=== PATIENT | female | born 1950 | race American Indian/Alaskan Native ===

== ENCOUNTER 2019-01-23 05:50 | Observation (INO) | payer MEDICARE, OTHER ==
[2019-01-19 10:08] LABS: Basophils % (Auto) 0.5 % (0.0-1.8); Eosinophils % (Auto) 0.2 % (0.0-4.3); Hematocrit 33.7 % (30.3-42.9); Hemoglobin 11.4 gm/dl (10.1-14.3); Lymphocytes # (Auto) 0.8 K/mm3 (1.2-5.4); Lymphocytes % (Auto) 26.1 % (13.4-35.0); Mean Corpuscular HGB Conc 34 % (30-34); Mean Corpuscular Volume 89 fl (79-97); Monocytes # (Auto) 0.3 K/mm3 (0.0-0.8); Monocytes % (Auto) 11.3 % (0.0-7.3); Platelet Count 297 K/mm3 (140-440); Red Blood Count 3.77 M/mm3 (3.65-5.03); Red Cell Distribution Width 14.3 % (13.2-15.2)
--- NOTE | 2019-01-19 10:08 | Anesthesia Consultation ---
Anesthesia Consult and Med Hx Date of service: 01/19/19 - Airway Anesthetic Teeth Evaluation: Good (3 Lt. Upper missing teeth - Bridge), Bridges ROM Head & Neck: Adequate Mental/Hyoid Distance: Adequate Mallampati Class: Class II Intubation Access Assessment: Probably Good - Pulmonary Exam CTA: Yes - Cardiac Exam Cardiac Exam: RRR - Pre-Operative Health Status ASA Pre-Surgery Classification: ASA2 Proposed Anesthetic Plan: General Nerve Block: Pec Blk discussed. Pt consents - Pulmonary Hx Sleep Apnea: Yes (Uses CPAP) - Cardiovascular System Hx Hypertension: Yes (OVER 10 YEARS) Hx Heart Murmur: Yes - Central Nervous System Hx Back Pain: Yes Hx Psychiatric Problems: No - Other Systems Hx Alcohol Use: Yes (OCCA) Hx Substance Use: No - Additional Comments Anesthesia Medical History Comments: 5'2.5" / 64.4kg / BMI-25.6. Risks, benefits of GETA discussed. Pt indicates understanding and consents.
[2019-01-19 10:25] LABS: BUN/Creatinine Ratio 23; Blood Urea Nitrogen 18 mg/dL (7-17); Calcium 9.7 mg/dL (8.4-10.2); Hemolysis Index 17
[~2019-01-23 05:50] MED LIST: ANCEF/STERILE WATER 2 GM/20 ML 2 GM/20 ML SYRINGE IV NR
[2019-01-23] MEDS ORDERED: MARCAINE 0.25% INFILTRATI ONE ×2 (07:28→07:41)
[2019-01-23] MEDS: LACTATED RINGERS 1,000 ML IV SCH ×2 (07:28→14:39)
[2019-01-23] MEDS ORDERED: XYLOCAINE 1% 20 mL ONE ×2 (07:28→07:41)
[2019-01-23] MEDS ORDERED: SUBLIMAZE ONE ×2 (07:30→07:39)
[2019-01-23] MEDS ORDERED: ZOFRAN ONE (07:30)
[2019-01-23] MEDS ORDERED: DIPRIVAN 10 MG/ML IV ONE (07:31)
[2019-01-23] MEDS ORDERED: NEURONTIN ONE (07:39)
[2019-01-23] MEDS ORDERED: VERSED ONE (07:39)
[2019-01-23] MEDS ORDERED: DECADRON ONE (07:41)
[2019-01-23] MEDS ORDERED: METHYLENE BLUE ONE (07:49)
[2019-01-23] MEDS ORDERED: NACL P/F VIAL (10 ML) 10 ML ONE (07:49)
[2019-01-23] MEDS ORDERED: LACTATED RINGERS 1,000 ML IV SCH (08:00)
--- NOTE | 2019-01-23 08:14 | Operative Report ---
Operative Report Operative Report: Date of Service: January 23, 2019 Preoperative diagnosis: Right breast cancer of the upper outer quadrant Postoperative diagnosis: Same Procedure: Right total mastectomy with sentinel lymph node biopsy Surgeon: Yvette Lopez M.D. Anesthesia: Gen. Findings: Right breast clip present within right total mastectomy. x1 sentinel lymph node identified and negative for malignancy on frozen section of pathology Complications: None Drains: One 19 Fr ABIGAIL Estimated blood loss: Minimal Disposition: PACU in good condition Indications for operative procedure: This is a 68-year-old lady with a personal history of bilateral breast cancer with newly diagnosed right breast cancer of the upper outer quadrant; [id number] ER/IL negatvie. She has a history of right breast cancer in 1994 s/p right lumpectomy wtih ALND followed by XRT. She has a history of left breast cancer in 1984 s/p left mastectomy with ALND followed by TRAM post adjuvant chemoradation. Recommendations were to proceed with a right mastectomy given history of right breast adjuvant XRT. Patient declined PRS. She wished to proceed with the above procedure. Procedure in detail: Anesthesia placed right pectoral muscle block prior to going to the operating room. The patient was taken to the operating room and was placed supine. Gen. anesthesia was administered. The right nipple was injected with radioisotope and 1 cc of methylene blue dye with 1 cc of saline. Right chest and axilla was prepped and draped in the normal sterile operative fashion. Timeout was performed. Typical mastectomy incision marking was made. Attention was taken towards the right breast. A gamma probe was inserted into the axilla to identify the sentinel lymph node location with uptake noted. A skin incision was made with a 10 blade knife and dissection taken down to the subcutaneous tissues. First began raising of the superior flap to the level of the clavicle superiorly and posteriorly to the pectoralis muscle. Followed by raising of the medial flap to the level of the sternum and posteriorly to the pectoralis muscle. Followed by raising of the lateral flap to the level of the latissimus dorsi muscle and taken down posteriorly. Scar tissue of the upper inner quadrant around the 1:00/2:00 positions were noted with scar resected. The gamma probe was inserted into the axilla, the axillary fascia was opened and 1 sentinel lymph node was identified with the gamma probe that were dissected free and sent to pathology. No remaining counts were present and patient with a history of right ALND in 1994. SLN was negative for malignancy on frozen section of pathology. Then proceeded with raising of the inferior flap to the level of the inframammary fold taken posterior to the pectoralis muscle. The mastectomy/breast was removed from the pectoralis muscle without incident. Mastectomy was noted for typical findings post XRT. The specimen was daniel ropriately marked and sent to radiology with findings of breast clip and microcalcifications present and sent to pathology. Hemostasis was noted. The chest wall was irrigated and suctioned. Hemostasis was obtained. One 19 [place] ABIGAIL drain was placed. The subcutaneous tissues were closed using an interrupted 3-0 Vicryl followed by closing of the skin using a running 4-0 Monocryl and dermabond. She tolerated surgery very well and was awaken from anesthesia and transported to PACU in good conidition.
--- NOTE | 2019-01-23 08:16 | Short Stay Summary ---
Short Stay Documentation Date of service: 01/23/19 - History H&P: obtained from office - Allergies and Medications Current Medications: Allergies No Known Allergies Allergy (Verified 01/17/19 15:49) Home Medications Medication Instructions Recorded Confirmed Last Taken Type Aspirin [Aspirin BABY CHEW TAB] 81 mg PO QDAY 01/17/19 01/23/19 01/22/19 09:00 History AtorvaSTATin [Lipitor] 20 mg PO QHS 01/17/19 01/23/19 01/22/19 09:00 History Calcium Citrate/Vitamin D3 [[place] 1 each PO DAILY 01/17/19 01/23/19 01/22/19 09:00 History Calcium + D Tablet] Cetirizine HCl [Allergy Relief] 10 mg PO DAILY 01/17/19 01/23/19 01/22/19 09:00 History Diclofenac Sodium 1 dose TP QID 01/17/19 01/23/19 01/22/19 09:00 History Fluticasone [Flonase] 1 spray NS QDAY 01/17/19 01/23/19 01/22/19 09:00 History Mv-Min/Iron/Folic/Calcium/Vitk 1 each PO BID 01/17/19 01/23/19 01/22/19 17:00 History [Women's Multivitamin Tablet] Olmesartan/Hydrochlorothiazide 1 each PO DAILY 01/17/19 01/23/19 01/22/19 09:00 History [Olmesartan-Hctz 40-25 mg Tab] Active Medications Cefazolin Sodium (Ancef/Sterile Water 2 Gm/20 Ml) 2 gm in 20 mls @ 80 mls/hr IV PREOP NR; Protocol Stop: 01/23/19 23:59 Lactated Ringer's (Lactated Ringers) 1,000 mls @ 75 mls/hr IV DIRECT BRAVO - Brief post op/procedure progress note Date of procedure: 01/23/19 Pre-op diagnosis: Right breast cancer of the upper outer quadrant Post-op diagnosis: same Procedure: Right total mastectomy Anesthesia: GETA Findings: clip present in specimen; x1 SLN and negative on frozen Surgeon: DAMIR CASILLAS Estimated blood loss: minimal Pathology: list (right mastectomy) Specimen disposition: to lab Condition: stable - Disposition Condition at discharge: Good Disposition: DC/TX-02 SHRT-TRM GEN HOSP IP Short Stay Discharge Plan Activity: other (no heavy lifting) Diet: regular Wound: keep clean and dry Follow up with: CYRUS LAZAR MD [Primary Care Provider] - 7 Days DAMIR CASILLAS MD [Staff Physician] - 7 Days
[2019-01-23] MEDS ORDERED: DILAUDID IV PRN (08:34)
--- NOTE | 2019-01-23 08:34 | Anesthesia Day of Surgery ---
Anesthesia Day of Surgery - Day of Surgery Patient Examined: Yes Patient H&P Reviewed: Yes Patient is NPO: Yes
[2019-01-23] MEDS ORDERED: WATER FOR IRRIG STERILE IR ONE (09:15)
[2019-01-23] MEDS ORDERED: ZOFRAN IV PRN (10:40)
[2019-01-23] MEDS ORDERED: TYLENOL PO PRN (10:40)
[2019-01-23] MEDS ORDERED: PERCOCET 5/325 PO PRN (10:40)
[2019-01-23] MEDS ORDERED: BENADRYL PO PRN (10:40)
[2019-01-23] MEDS ORDERED: REGLAN PO PRN (10:40)
[2019-01-23] MEDS ORDERED: SODIUM CHLORIDE FLUSH SYRINGE 10 ML IV PRN (10:40)
[2019-01-23] MEDS ORDERED: MORPHINE IV PRN (10:43)
--- NOTE | 2019-01-23 11:28 | Mammography Report ---
SPECIMEN RADIOGRAPH RIGHT BREAST: 01/23/19 05:50:00 CLINICAL: Right mastectomy. FINDINGS: Surgical clips and a biopsy clip and a second site are identified within the specimen.
--- NOTE | 2019-01-23 13:16 | Post Anesthesia Evaluation ---
- Post Anesthesia Evaluation Patient Participated: Yes Airway Patent: Yes Stable Respiratory Function: Yes Nausea/Vomiting: No Temp > 96.8F: Yes Pain Manageable: Yes Adequeate Hydration: Yes Anesthesia Complications: No
[2019-01-23] MEDS: COLACE PO SCH (22:48)
--- NOTE | 2019-01-24 08:07 | Progress Note ---
Assessment and Plan This is a 68 year old lady POD#1 right mastectomy. 1. No acute events overnight and patient with no complaints of pain. 2. Right chest incision healing well. 3. OOB to hallway. 4. ABIGAIL drain education. 5. D/C planning for today. Subjective Date of service: 01/24/19 Principal diagnosis: Right breast cancer Interval history: POD#1 right mastectomy Objective - Constitutional Vitals: Vital Signs - 12hr 01/23/19 01/23/19 01/24/19 20:30 20:55 01:40 Temperature 98 F 97.6 F Pulse Rate 84 79 Respiratory 18 14 16 Rate Blood Pressure 116/66 97/55 [Left] O2 Sat by Pulse 98 100 Oximetry 01/24/19 05:50 Temperature 97.6 F Pulse Rate 78 Respiratory 16 Rate Blood Pressure 97/61 [Left] O2 Sat by Pulse 100 Oximetry General appearance: Present: no acute distress - EENT Eyes: PERRL, EOM intact ENT: hearing intact, clear oral mucosa Ears: bilateral: normal - Neck Neck: supple, normal ROM - Respiratory Respiratory effort: normal Respiratory: bilateral: CTA - Breasts Breasts: other (right chest incision healing well; incision c/d/i, skin well perfused; ABIGAIL drain to bulb suction) - Cardiovascular Rhythm: regular Extremities: no ischemia, pulses intact, pulses symmetrical, No edema, normal temperature, normal color, Full ROM - Gastrointestinal General gastrointestinal: Present: soft, non-tender, non-distended Rectal Exam: deferred - Genitourinary Female genitourinary: deferred - Integumentary Integumentary: clear, warm, dry - Musculoskeletal Musculoskeletal: strength equal bilaterally - Neurologic Neurologic: CNII-XII intact, moves all extremities - Psychiatric Psychiatric: appropriate mood/affect, intact judgment & insight, memory intact, cooperative - Labs CBC & Chem 7: 01/19/19 09:40 01/19/19 09:40 Medications & Allergies - Medications Allergies/Adverse Reactions: Allergies No Known Allergies Allergy (Verified 01/17/19 15:49) Home Medications: Home Medications Medication Instructions Recorded Confirmed Last Taken Type Aspirin [Aspirin BABY CHEW TAB] 81 mg PO QDAY 01/17/19 01/23/19 01/22/19 09:00 History AtorvaSTATin [Lipitor] 20 mg PO QHS 01/17/19 01/23/19 01/22/19 09:00 History Calcium Citrate/Vitamin D3 [[place] 1 each PO DAILY 01/17/19 01/23/19 01/22/19 09:00 History Calcium + D Tablet] Cetirizine HCl [Allergy Relief] 10 mg PO DAILY 01/17/19 01/23/19 01/22/19 09:00 History Diclofenac Sodium 1 dose TP QID 01/17/19 01/23/19 01/22/19 09:00 History Fluticasone [Flonase] 1 spray NS QDAY 01/17/19 01/23/19 01/22/19 09:00 History Mv-Min/Iron/Folic/Calcium/Vitk 1 each PO BID 01/17/19 01/23/19 01/22/19 17:00 History [Women's Multivitamin Tablet] Olmesartan/Hydrochlorothiazide 1 each PO DAILY 01/17/19 01/23/19 01/22/19 09:00 History [Olmesartan-Hctz 40-25 mg Tab] HYDROcodone/APAP 5-325 [[place] 1 each PO Q6HR PRN #30 tablet 01/24/19 Unknown Rx 5/325] Active Medications: Generic Name Dose Route Start Last Admin Trade Name Freq PRN Reason Stop Dose Admin Acetaminophen 650 mg 01/23/19 10:40 Tylenol PO Q6H PRN Pain MILD(1-3)/Fever >100.5/TOSCANO Diphenhydramine HCl 25 mg 01/23/19 10:40 Benadryl PO Q8H PRN Itching Docusate Sodium 100 mg 01/23/19 22:00 01/23/19 22:48 Colace PO Not Given BID BRAVO Lactated Ringer's 1,000 mls @ 125 mls/hr 01/23/19 11:00 01/23/19 14:39 Lactated Ringers IV 125 mls/hr DIRECT BRAVO Administration Metoclopramide HCl 10 mg 01/23/19 10:40 Reglan PO Q6H PRN Nausea And Vomiting Morphine Sulfate 2 mg 01/23/19 10:43 Morphine IV Q4H PRN Pain, Moderate (4-6) Ondansetron HCl 4 mg 01/23/19 10:40 Zofran IV Q8H PRN N/V unrelieved by Reglan Oxycodone/Acetaminophen 1 tab 01/23/19 10:40 Percocet 5/325 PO Q6H PRN Pain, Moderate (4-6) Sodium Chloride 10 ml 01/23/19 10:40 Sodium Chloride Flush Syringe 10 Ml IV PRN PRN LINE FLUSH
[2019-01-24] MEDS: COLACE PO SCH (11:28)
[2019-01-24 13:14] VITALS: BP 116/68
== END 2019-01-24 12:45 | disposition home or self-care (01) ==
LOC: OR 05:50 → OB 10:40
PROVIDERS: ADMIT Surgery; ATTEND Surgery
DX: C50.911 Malignant neoplasm of unspecified site of right female breast (principal)
CPT/HCPCS: 19303; 36415; 76098; 78800; 80048; 85025; 88307; 88309; 88331; 88333; 88342; A9541; G0378; J0690; J1100; J2250; J2405; J2704; J3010; J7120; Q9968

== ENCOUNTER 2019-02-10 14:26 | Outpatient (CLI) | payer MEDICARE, OTHER | END 2019-02-10 14:27 | disposition home or self-care (01) | LOC: LABHHL 14:26 | PROVIDERS: ATTEND Surgery | DX: N60.01 Solitary cyst of right breast (principal); E78.00 Pure hypercholesterolemia, unspecified; I10 Essential (primary) hypertension; Z90.710 Acquired absence of both cervix and uterus; Z90.12 Acquired absence of left breast and nipple | CPT/HCPCS: 87075; 87116 ==

== ENCOUNTER 2019-07-24 07:05 | Day surgery (SDC) | payer MEDICARE, OTHER ==
[~2019-07-24 07:05] MED LIST changes: -ANCEF/STERILE WATER 2 GM/20 ML 2 GM/20 ML SYRINGE IV NR; +ANCEF/STERILE WATER 2 GM/20 ML IV NR
[2019-07-24] MEDS ORDERED: TYLENOL PO NR (07:31)
--- NOTE | 2019-07-24 07:36 | Anesthesia Day of Surgery ---
Anesthesia Day of Surgery - Day of Surgery Patient Examined: Yes Patient H&P Reviewed: Yes Patient is NPO: Yes
--- NOTE | 2019-07-24 07:40 | Anesthesia Consultation ---
Anesthesia Consult and Med Hx Date of service: 07/24/19 - Airway Anesthetic Teeth Evaluation: Good, Crowns ROM Head & Neck: Adequate Mental/Hyoid Distance: Adequate Mallampati Class: Class II Intubation Access Assessment: Good - Pre-Operative Health Status ASA Pre-Surgery Classification: ASA3 Proposed Anesthetic Plan: General Nerve Block: PEC - Pulmonary Hx Smoking: No Hx Sleep Apnea: Yes (DX SLEEP APNEA WITH CPAP USE.) - Cardiovascular System Hx Hypertension: Yes (OVER 10 YEARS) Hx Heart Murmur: Yes - Central Nervous System Hx Back Pain: Yes Hx Psychiatric Problems: No - Other Systems Hx Alcohol Use: Yes (OCCA) Hx Substance Use: No Hx Cancer: Yes
[2019-07-24] MEDS ORDERED: DILAUDID IV PRN (08:00)
[2019-07-24] MEDS ORDERED: SUBLIMAZE IV PRN (08:00)
[2019-07-24] MEDS ORDERED: LACTATED RINGERS 1,000 ML IV SCH (08:00)
[2019-07-24] MEDS ORDERED: NEURONTIN PO NR (08:00)
[2019-07-24] MEDS ORDERED: ZOFRAN IV PRN (08:00)
[2019-07-24] MEDS ORDERED: SUBLIMAZE IV NR (08:00)
[2019-07-24 08:22] LABS: Basophils % (Auto) 0.3 % (0.0-1.8); Eosinophils % (Auto) 0.1 % (0.0-4.3); Hematocrit 33.4 % (30.3-42.9); Hemoglobin 11.2 gm/dl (10.1-14.3); Lymphocytes # (Auto) 0.8 K/mm3 (1.2-5.4); Lymphocytes % (Auto) 21.8 % (13.4-35.0); Mean Corpuscular HGB Conc 33 % (30-34); Mean Corpuscular Volume 89 fl (79-97); Monocytes # (Auto) 0.4 K/mm3 (0.0-0.8); Platelet Count 301 K/mm3 (140-440); Red Blood Count 3.76 M/mm3 (3.65-5.03); Red Cell Distribution Width 14.2 % (13.2-15.2)
[2019-07-24] MEDS ORDERED: VERSED ONE (08:57)
[2019-07-24] MEDS ORDERED: MARCAINE-EPI 0.5%-1:200,000 INFILTRATI ONE (09:01)
[2019-07-24] MEDS ORDERED: XYLOCAINE 1% 20 mL ONE ×2 (09:02→09:04)
[2019-07-24] MEDS ORDERED: MARCAINE 0.25% INFILTRATI ONE (09:04)
[2019-07-24] MEDS ORDERED: DILAUDID ONE (09:08)
[2019-07-24] MEDS ORDERED: DIPRIVAN 10 MG/ML IV ONE (09:08)
[2019-07-24] MEDS ORDERED: XYLOCAINE MPF 2% ONE (09:10)
--- NOTE | 2019-07-24 10:25 | Operative Report ---
Operative Report Operative Report: Operative Report: Date of Service: July 24, 2019 Preoperative diagnosis: Personal history of right breast cancer, s/p mastectomy Postoperative diagnosis: Same Procedure: Right mastectomy skin revision Surgeon: Yvette Lopez M.D. Sociology Teacher: Tamiko Lazcano M.D. 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 She has a history right breast cancer diagnosed in 1994 status post right partial mastectomy with ALND followed by XRT; and left breast cancer in 1984 status post left MRM post adjuvant chemoradiation therapy. Patient wished to proceed with mastectomy skin revision for mastectomy skin to be tighter of the medial aspect. Patient wished to proceed with the above pro cedure. The patient was procedure in detail: The patient was taken to the operating room and was laid supine. General anesthesia was administered. The right chest was prepped and draped in the normal sterile operative fashion. Timeout was performed. A skin incision was made through the prior mastectomy incision. Skin flap was noted to be thin with minimal subcutaneous tissues. Then proceeded with medial skin flap revision with resection of skin and underlying tissues. Specimen removed was marked and then sent to pathology. Hemostasis was obtained using the Bovie cautery. The chest cavity was irrigated and suctioned. The subcutaneous tissues were approximated and closed using interrupted 2-0 and 3-0 Vicryl and skin brought together and closed using a running 4-0 Monocryl followed by placement of PICCO dressing. The medial aspect noted for area to be closed tighter. She tolerated surgery very well and was awakened from anesthesia without any complication and transported to PACU in good condition.
[2019-07-24] MEDS ORDERED: WATER FOR IRRIG STERILE IR ONE (11:00)
[2019-07-24] MEDS ORDERED: DECADRON ONE (11:30)
[2019-07-24] MEDS ORDERED: ZOFRAN ONE (11:30)
[2019-07-24] MEDS ORDERED: LACTATED RINGERS 1,000 ML ONE (12:05)
--- NOTE | 2019-07-24 12:10 | Short Stay Summary ---
Short Stay Documentation Date of service: 07/24/19 - History H&P: obtained from office - Allergies and Medications Current Medications: Allergies No Known Allergies Allergy (Verified 01/17/19 15:49) Home Medications Medication Instructions Recorded Confirmed Last Taken Type AtorvaSTATin [Lipitor] 20 mg PO QHS 01/17/19 07/24/19 07/23/19 History Cetirizine HCl [Allergy Relief] 10 mg PO DAILY 01/17/19 07/24/19 07/23/19 Hist ory Fluticasone [Flonase] 2 spray NS QDAY 01/17/19 07/24/19 07/23/19 History Mv-Min/Iron/Folic/Calcium/Vitk 1 each PO BID 01/17/19 07/24/19 07/23/19 History [Women's Multivitamin Tablet] Olmesartan/Hydrochlorothiazide 1 each PO DAILY 01/17/19 07/24/19 07/23/19 History [Olmesartan-Hctz 40-25 mg Tab] HYDROcodone/APAP 5-325 [[place] 1 each PO Q6HR PRN #30 tablet 01/24/19 07/17/19 Un known Rx 5/325] HYDROcodone/APAP 5-325 [[place] 1 each PO Q6HR PRN #12 tablet 07/24/19 Unknown Rx 5/325] Active Medications Acetaminophen (Tylenol) 650 mg PO ONCE NR Stop: 07/24/19 18:00 Last Admin: 07/24/19 08:11 Dose: 650 mg Documented by: Cefazolin Sodium (Ancef/Sterile Water 2 Gm/20 Ml) 2 gm IV PREOP NR Stop: 07/24/19 23:59 Celecoxib (Celebrex) 200 mg PO PREOP NR Stop: 07/24/19 20:00 Last Admin: 07/24/19 08:12 Dose: 200 mg Documented by: Fentanyl (Sublimaze) 50 mcg IV Q5MIN PRN PRN Reason: Pain , Severe (7-10) Stop: 07/24/19 17:00 Fentanyl (Sublimaze) 100 mcg IV ONCE NR Stop: 07/24/19 17:00 Last Admin: 07/24/19 09:16 Dose: 100 mcg Documented by: Gabapentin (Neurontin) 300 mg PO PREOP NR Stop: 07/24/19 20:00 Last Admin: 07/24/19 08:12 Dose: 300 mg Documented by: Hydromorphone HCl (Dilaudid) 0.5 mg IV Q10MIN PRN PRN Reason: Pain , Severe (7-10) Stop: 07/24/19 17:00 Lactated Ringer's (Lactated Ringers) 1,000 mls @ 125 mls/hr IV DIRECT BRAVO Last Admin: 07/24/19 08:13 Dose: 125 mls/hr Documented by: Ondansetron HCl (Zofran) 4 mg IV ONCE PRN PRN Reason: Nausea And Vomiting Stop: 07/24/19 17:00 - Brief post op/procedure progress note Date of procedure: 07/24/19 Pre-op diagnosis: Personal history right breast cancer, s/p mastectomy Post-op diagnosis: same Procedure: Right mastectomy skin revision Anesthesia: CATERINA Surgeon: DAMIR CASILLAS Systems Tester: MAGNUS JUNE (Scarlett Wei) Estimated blood loss: minimal Pathology: list Specimen disposition: to lab Condition: stable - Disposition Condition at discharge: Stable Disposition: DC-01 TO HOME OR SELFCARE Short Stay Discharge Plan Activity: no driving until cleared by PCP Weight Bearing Status: Full Weight Bearing Diet: regular Wound: keep clean and dry, per your surgeon's advice Special Instructions: no heavy lifting (No more than 5 lbs) Follow up with: CYRUS LAZAR MD [Primary Care Provider] - 7 Days Prescriptions: HYDROcodone/APAP 5-325 [[place] 5/325] 1 each PO Q6HR PRN #12 tablet PRN Reason: Pain
[2019-07-24] MEDS ORDERED: NORCO 5/325 PO PRN (12:21)
[2019-07-24 13:02] VITALS: BP 158/85
--- NOTE | 2019-07-24 17:57 | Post Anesthesia Evaluation ---
- Post Anesthesia Evaluation Patient Participated: Yes Airway Patent: Yes Stable Respiratory Function: Yes Nausea/Vomiting: No Temp > 96.8F: Yes Pain Manageable: Yes Adequeate Hydration: Yes Anesthesia Complications: No Block Receding Appropriately: Not Applicable Patient on Ventilator: No
== END 2019-07-24 13:50 | disposition home or self-care (01) ==
LOC: OR 07:05
PROVIDERS: ATTEND Surgery
DX: N64.89 Other specified disorders of breast (principal); E78.00 Pure hypercholesterolemia, unspecified; I10 Essential (primary) hypertension; G47.30 Sleep apnea, unspecified; Z90.13 Acquired absence of bilateral breasts and nipples; L98.8 Other specified disorders of the skin and subcutaneous tissue; Z90.710 Acquired absence of both cervix and uterus; Z96.651 Presence of right artificial knee joint; Z72.89 Other problems related to lifestyle; Z79.899 Other long term (current) drug therapy; Z98.890 Other specified postprocedural states; Z85.3 Personal history of malignant neoplasm of breast; Z85.828 Personal history of other malignant neoplasm of skin
CPT/HCPCS: 11406; 12032; 36415; 84132; 85025; 88305; 88307; J0690; J1100; J1170; J2250; J2405; J2704; J3010; J7120